=== PATIENT | female | born 1950 | race Caucasian/White ===

== ENCOUNTER 2022-03-16 17:53 | Inpatient (IN) | payer OTHER ==
[~2022-03-16] VITALS: Ht 152.4 cm; Wt 74.8 kg
[2022-03-16 17:56] VITALS: BP_SYST 149; BP_SYST 150; BP_DIAS 100; BP_DIAS 76
[2022-03-16] MEDS ORDERED: ALBUTEROL SULFATE/IPRATROPIU 3 ML SOL IH ONE (18:00)
[2022-03-16] MEDS ORDERED: methylPREDNISolone SS 125 MG/2 ML VIAL IVP ONE (18:00)
[2022-03-16] MEDS ORDERED: ACETAMINOPHEN EXTRA STRENGTH 500 MG TAB PO ONE (18:00)
[2022-03-16] MEDS ORDERED: NACL 0.9% 1,000 ML IV ONE ×2 (18:00→18:05)
[2022-03-16] MEDS ORDERED: cefTRIAXone 1,000 MG VIAL ONE (18:08)
[2022-03-16 18:46] LABS: BASOPHILS % (AUTO) 0.8 % (0.0-2.0); EOSINOPHILS # (AUTO) 0.2 K/uL (0-0.4); EOSINOPHILS % (AUTO) 4.2 % (0.0-4.0); HEMATOCRIT 37.7 % (36-48); HEMOGLOBIN 13.2 g/dL (12.0-16.0); LYMPHOCYTES # (AUTO) 0.3 K/uL (2.5-16.5); LYMPHOCYTES % (AUTO) 5.5 % (20.5-51.1); MEAN CORPUSCULAR HEMOGLOBIN 31 pg (27-31); MEAN CORPUSCULAR HGB CONC 35 g/dL (33-37); MEAN CORPUSCULAR VOLUME 89.3 fL (80-94); MONOCYTES # (AUTO) 0.1 K/uL (0.8-1.0); MONOCYTES % (AUTO) 1.4 % (1.7-9.3); NEUTROPHILS # (AUTO) 4.3 K/uL (1.8-7.7); NEUTROPHILS % (AUTO) 88.1 % (42.2-75.2); PLATELET COUNT (AUTO) 266 K/uL (140-450); RED BLOOD CELL COUNT(AUTO) 4.22 MIL/uL (4.20-5.40); RED CELL DISTRIBUTION WIDTH 16.1 % (11.6-13.7); WHITE BLOOD COUNT (AUTO) 4.9 K/uL (4.8-10.8)
[2022-03-16] MEDS ORDERED: AZITHROMYCIN 500 MG in DEXTROSE 5% 250 ML IV ONE (18:50)
[2022-03-16 18:56] LABS: APPEARANCE,URINE SL CLOUDY (CLEAR); BILIRUBIN,URINE NEGATIVE (NEGATIVE); BLOOD, URINE 2+ (NEGATIVE); COLOR,URINE ORANGE (YELLOW); LEUKOCYTE ESTERASE ,URINE 2+ (NEGATIVE); NITRITE, URINE POSITIVE (NEGATIVE); PH,URINE 6.5 (5.0-9.0); UGLUCOSE NEGATIVE (NEGATIVE)
[2022-03-16 19:10] LABS: ALBUMIN 3.4 g/dL (3.4-5.0); ANION GAP 12.3 (8-16); ASPARTATE AMINOTRANSFERASE 132 U/L (15-37); CARBON DIOXIDE 29.2 mmol/L (21-32); CHLORIDE 99 mmol/L (98-107); CREATININE 0.8 mg/dL (0.6-1.3); GLUCOSE 129 mg/dL (74-106); POTASSIUM 3.5 mmol/L (3.5-5.1); SODIUM SERUM 137 mmol/L (136-145); UREA NITROGEN, BLOOD 12 mg/dL (7-18)
[2022-03-16] MEDS ORDERED: AZITHROMYCIN 500 MG INJ VIAL IV ONE (19:10)
[2022-03-16 19:17] LABS: RBC,URINE 0-5 /HPF (0-5)
[2022-03-16 19:18] LABS: WBC,URINE 80-100 /HPF (0-5)
[2022-03-16] MEDS ORDERED: ZOLPIDEM 5 MG TAB PO PRN (22:30)
[2022-03-16] MEDS ORDERED: DOCUSATE SODIUM 100 MG GELCAP PO PRN (22:30)
[2022-03-16] MEDS ORDERED: HYDROcodone/APAP 7.5/325 MG 1 TAB PO PRN (22:30)
[2022-03-16] MEDS ORDERED: guaiFENesin DM 200/20 MG-10 ML 10 ML UDC PO PRN (22:30)
[2022-03-16] MEDS ORDERED: ACETAMINOPHEN 325 MG TAB PO PRN (22:30)
[2022-03-16] MEDS ORDERED: ONDANSETRON 4 MG/2 ML VIAL IM/IVP PRN (22:30)
[2022-03-16 22:59] LABS: FREE T4 (FREE THYROXINE) 1.54 ng/dL (0.76-1.46); MAGNESIUM 1.8 mg/dL (1.8-2.4); PHOSPHORUS 2.6 mg/dL (2.5-4.9); THYROID STIMULATING HORMONE 2.17 uIU/mL (0.34-3.74)
[2022-03-16] MEDS: NACL 0.9% 1,000 ML IV SCH (23:22)
[2022-03-17] MEDS ORDERED: ALBU0.0912 INH (00:07)
[2022-03-17] MEDS ORDERED: AMLO10TA PO (00:08)
[2022-03-17] MEDS ORDERED: FLUT1BLS23 IH (00:11)
[2022-03-17] MEDS ORDERED: FURO-572 PO (00:12)
[2022-03-17] MEDS ORDERED: LEVO0.124 PO (00:14)
[2022-03-17] MEDS ORDERED: METH2.5T6 PO (00:15)
[2022-03-17] MEDS ORDERED: MONT5CTB27 PO (00:17)
[2022-03-17] MEDS ORDERED: PANT20EC18 PO (00:17)
[2022-03-17] MEDS ORDERED: PAX10 PO (00:18)
[2022-03-17] MEDS ORDERED: SIMV-30 PO (00:19)
[2022-03-17] MEDS ORDERED: VITB12 PO (00:20)
[2022-03-17 07:45] LABS: ANION GAP 12.5 (8-16); CHLORIDE 107 mmol/L (98-107); CREATININE 0.7 mg/dL (0.6-1.3); GLUCOSE 155 mg/dL (74-106); POTASSIUM 3.5 mmol/L (3.5-5.1); SODIUM SERUM 144 mmol/L (136-145); UREA NITROGEN, BLOOD 9 mg/dL (7-18)
[2022-03-17 08:11] LABS: HEMATOCRIT 35.8 % (36-48); MEAN CORPUSCULAR HEMOGLOBIN 30 pg (27-31); MEAN CORPUSCULAR HGB CONC 34 g/dL (33-37); MEAN CORPUSCULAR VOLUME 90.5 fL (80-94); PLATELET COUNT (AUTO) 250 K/uL (140-450); RED BLOOD CELL COUNT(AUTO) 3.96 MIL/uL (4.20-5.40); RED CELL DISTRIBUTION WIDTH 16.6 % (11.6-13.7); WHITE BLOOD COUNT (AUTO) 18.3 K/uL (4.8-10.8)
[2022-03-17 09:00] VITALS: BP 128/63
[2022-03-17] MEDS: PANTOPRAZOLE 40 MG TABEC PO SCH (09:00)
[2022-03-17 09:33] LABS: BASOPHILS % (MANUAL) 0 % (0-2); BLASTS, MANUAL % 0 % (0-0); EOSINOPHILS % (MANUAL) 0 % (0-4); LYMPHOCYTES % (MANUAL) 2 % (20-46); METAMYELOCYTES % 0 % (0-0); MONOCYTES % (MANUAL) 1 % (5-12); MYELOCYTES % 0 % (0-0); OTHER CELLS,MANUAL % 0 (0-0); PROMYELOCYTES % 0 % (0-0)
[2022-03-17 09:34] LABS: BUFFY COAT SMEAR PREP N
[2022-03-17] MEDS: NACL 0.9% 1,000 ML IV SCH ×3 (11:00→23:30)
[2022-03-17 12:00] VITALS: BP 122/79
[2022-03-17 16:00] VITALS: BP 128/70
[2022-03-17 20:00] VITALS: BP 130/70
[2022-03-18] VITALS: BP 119/61
[2022-03-18] MEDS: NACL 0.9% 1,000 ML IV SCH ×2 (01:45→16:10)
[2022-03-18 04:00] VITALS: BP 120/57
[2022-03-18 06:53] LABS: BASOPHILS % (AUTO) 0.1 % (0.0-2.0); EOSINOPHILS % (AUTO) 0.2 % (0.0-4.0); HEMATOCRIT 31.9 % (36-48); HEMOGLOBIN 10.9 g/dL (12.0-16.0); LYMPHOCYTES # (AUTO) 1.1 K/uL (2.5-16.5); LYMPHOCYTES % (AUTO) 8.8 % (20.5-51.1); MEAN CORPUSCULAR HEMOGLOBIN 31 pg (27-31); MEAN CORPUSCULAR HGB CONC 34 g/dL (33-37); MEAN CORPUSCULAR VOLUME 89.7 fL (80-94); MONOCYTES # (AUTO) 1.2 K/uL (0.8-1.0); MONOCYTES % (AUTO) 9.6 % (1.7-9.3); NEUTROPHILS # (AUTO) 10.6 K/uL (1.8-7.7); NEUTROPHILS % (AUTO) 81.3 % (42.2-75.2); PLATELET COUNT (AUTO) 281 K/uL (140-450); RED BLOOD CELL COUNT(AUTO) 3.55 MIL/uL (4.20-5.40); RED CELL DISTRIBUTION WIDTH 16.4 % (11.6-13.7); WHITE BLOOD COUNT (AUTO) 13.1 K/uL (4.8-10.8)
[2022-03-18 07:27] LABS: ANION GAP 11.3 (8-16); CARBON DIOXIDE 26.7 mmol/L (21-32); CHLORIDE 108 mmol/L (98-107); CREATININE 0.5 mg/dL (0.6-1.3); GLUCOSE 112 mg/dL (74-106); SODIUM SERUM 143 mmol/L (136-145); UREA NITROGEN, BLOOD 10 mg/dL (7-18)
[2022-03-18 08:00] VITALS: BP 126/51
[2022-03-18] MEDS: PANTOPRAZOLE 40 MG TABEC PO SCH (09:11)
[2022-03-18] MEDS: POTASSIUM CHLORIDE 10 MEQ TABER PO PRN (09:11)
[2022-03-18 12:00] VITALS: BP 126/51
[2022-03-18 12:08] LABS: T4 (THYROXINE) 9.6 ug/dL (4.5-12.0)
[2022-03-18 16:00] VITALS: BP 123/56
[2022-03-18 20:00] VITALS: BP 126/55
[2022-03-19] MEDS: NACL 0.9% 1,000 ML IV SCH ×3 (00:27→15:54)
[2022-03-19 04:00] VITALS: BP 122/61
[2022-03-19 06:58] LABS: BASOPHILS # (AUTO) 0.1 K/uL (0.00-0.22); BASOPHILS % (AUTO) 0.7 % (0.0-2.0); EOSINOPHILS # (AUTO) 0.4 K/uL (0-0.4); EOSINOPHILS % (AUTO) 4.4 % (0.0-4.0); HEMOGLOBIN 12.6 g/dL (12.0-16.0); LYMPHOCYTES # (AUTO) 1.5 K/uL (2.5-16.5); LYMPHOCYTES % (AUTO) 17.4 % (20.5-51.1); MEAN CORPUSCULAR HEMOGLOBIN 31 pg (27-31); MEAN CORPUSCULAR HGB CONC 35 g/dL (33-37); MEAN CORPUSCULAR VOLUME 88.8 fL (80-94); MONOCYTES # (AUTO) 1.2 K/uL (0.8-1.0); MONOCYTES % (AUTO) 13.6 % (1.7-9.3); NEUTROPHILS # (AUTO) 5.5 K/uL (1.8-7.7); NEUTROPHILS % (AUTO) 63.9 % (42.2-75.2); PLATELET COUNT (AUTO) 375 K/uL (140-450); RED BLOOD CELL COUNT(AUTO) 4.05 MIL/uL (4.20-5.40); RED CELL DISTRIBUTION WIDTH 16.6 % (11.6-13.7); WHITE BLOOD COUNT (AUTO) 8.7 K/uL (4.8-10.8)
[2022-03-19 07:03] LABS: ANION GAP 12.7 (8-16); CARBON DIOXIDE 31.6 mmol/L (21-32); CHLORIDE 104 mmol/L (98-107); CREATININE 0.6 mg/dL (0.6-1.3); GLUCOSE 86 mg/dL (74-106); POTASSIUM 3.3 mmol/L (3.5-5.1); SODIUM SERUM 145 mmol/L (136-145); UREA NITROGEN, BLOOD 10 mg/dL (7-18)
[2022-03-19 08:00] VITALS: BP 131/69
[2022-03-19] MEDS: PANTOPRAZOLE 40 MG TABEC PO SCH (08:54)
[2022-03-19] MEDS: POTASSIUM CHLORIDE 10 MEQ TABER PO PRN (08:55)
[2022-03-19 16:00] VITALS: BP 112/72
[2022-03-19 20:00] VITALS: BP 126/69
[2022-03-20] MEDS: NACL 0.9% 1,000 ML IV SCH ×2 (01:52→09:23)
[2022-03-20 04:00] VITALS: BP 124/76
[2022-03-20 07:24] LABS: BASOPHILS # (AUTO) 0.1 K/uL (0.00-0.22); BASOPHILS % (AUTO) 0.9 % (0.0-2.0); EOSINOPHILS # (AUTO) 1.1 K/uL (0-0.4); EOSINOPHILS % (AUTO) 10.5 % (0.0-4.0); HEMATOCRIT 36.5 % (36-48); HEMOGLOBIN 12.6 g/dL (12.0-16.0); LYMPHOCYTES # (AUTO) 1.9 K/uL (2.5-16.5); MEAN CORPUSCULAR HEMOGLOBIN 31 pg (27-31); MEAN CORPUSCULAR HGB CONC 34 g/dL (33-37); MEAN CORPUSCULAR VOLUME 89.5 fL (80-94); MONOCYTES # (AUTO) 1.1 K/uL (0.8-1.0); MONOCYTES % (AUTO) 10.5 % (1.7-9.3); PLATELET COUNT (AUTO) 409 K/uL (140-450); RED BLOOD CELL COUNT(AUTO) 4.08 MIL/uL (4.20-5.40); RED CELL DISTRIBUTION WIDTH 16.6 % (11.6-13.7); WHITE BLOOD COUNT (AUTO) 10.1 K/uL (4.8-10.8)
[2022-03-20 07:40] LABS: ANION GAP 12.4 (8-16); CARBON DIOXIDE 29.1 mmol/L (21-32); CHLORIDE 108 mmol/L (98-107); CREATININE 0.5 mg/dL (0.6-1.3); GLUCOSE 96 mg/dL (74-106); POTASSIUM 3.5 mmol/L (3.5-5.1); SODIUM SERUM 146 mmol/L (136-145); UREA NITROGEN, BLOOD 10 mg/dL (7-18)
[2022-03-20 07:51] LABS: NEUTROPHILS % (AUTO) 59.1 % (42.2-75.2)
[2022-03-20 08:00] VITALS: BP 123/72
[2022-03-20] MEDS: PANTOPRAZOLE 40 MG TABEC PO SCH (09:22)
[2022-03-20] MEDS ORDERED: AMOX-999 PO (09:47)
[2022-03-20 11:53] VITALS: BP 123/72
== END 2022-03-20 14:18 | disposition home or self-care (01) | DRG 871 ==
LOC: MED 17:53 → MTU 17:55
PROVIDERS: ADMIT Family Medicine; ATTEND Family Medicine
PROC: 5A0935A Assistance with Respiratory Ventilation, Less than 24 Consecutive Hours, High Flow/Velocity Cannula (ICD-10-PCS; principal; 2022-03-16)
DX: A41.9 Sepsis, unspecified organism (principal); G93.41 Metabolic encephalopathy; N39.0 Urinary tract infection, site not specified; N13.30 Unspecified hydronephrosis; I10 Essential (primary) hypertension; J45.909 Unspecified asthma, uncomplicated; D72.829 Elevated white blood cell count, unspecified; R73.9 Hyperglycemia, unspecified; E83.51 Hypocalcemia; E78.1 Pure hyperglyceridemia; N81.10 Cystocele, unspecified; K44.9 Diaphragmatic hernia without obstruction or gangrene; E87.6 Hypokalemia; Z20.822 Contact with and (suspected) exposure to COVID-19; Z88.6 Allergy status to analgesic agent; B96.20 Unspecified Escherichia coli [E. coli] as the cause of diseases classified elsewhere
CPT/HCPCS: 36415; 70450; 71045; 73562; 80048; 80053; 81001; 82150; 83036; 83605; 83690; 83735; 83880; 84100; 84436; 84439; 84443; 84479; 84484; 85025; 85610; 85730; 87040; 87081; 87086; 93005; 96361; 96365; 96367; 96375; 97116; 97163-GP; 99291; J0456; J0696; J2930; J7030; J7060; Q0092